=== PATIENT | male | born 1980 | race Two or more races ===

== ENCOUNTER 2018-07-01 01:04 | Observation (INO) ==
[2018-07-01 01:36] LABS: Baso % (Auto) 0.4 % (0.0-2.0); Eos # (Auto) 0.2 th/mm3 (0.0-0.4); Eos % (Auto) 1.7 % (0.0-4.0); Hematocrit 42.2 % (39.0-51.0); Hemoglobin 14.4 gm/dL (13.0-17.0); Lymph # (Auto) 5.1 th/mm3 (1.0-4.8); Lymph % (Auto) 41.6 % (9.0-44.0); Mean Corpuscular Hemoglobin 31.2 pg (27.0-34.0); Mean Corpuscular Volume 91.5 fL (80.0-100.0); Mean Platelet Volume 8.2 fL (7.0-11.0); Mono # (Auto) 0.9 th/mm3 (0.0-0.9); Mono % (Auto) 7.1 % (0.0-8.0); Neut % (Auto) 49.2 % (16.0-70.0); Platelet Count 235 th/mm3 (150-450); Red Blood Count 4.61 mil/mm3 (4.50-5.90); Red Cell Distribution Width 13.1 % (11.6-17.2); White Blood Count 12.2 th/mm3 (4.0-11.0)
--- NOTE | 2018-07-01 01:40 | XR ---
EXAM DATE: 07/01/2018 1:20 AM EDT AGE/SEX: 38 years / Male INDICATIONS: Chest pain. CLINICAL DATA: This is the patient's initial encounter. Patient reports that signs and symptoms have been present for 1 day and indicates a pain score of 6/10. MEDICAL/SURGICAL HISTORY: Hypertension. None. COMPARISON: No prior exams available for comparison. FINDINGS: A single AP view of the chest demonstrates the lungs to be symmetrically aerated without evidence of mass, infiltrate or effusion. The cardiomediastinal contours are unremarkable. Osseous structures a re intact. CONCLUSION: No acute cardiopulmonary process. Electronically signed by: Allan Tan MD 07/01/2018 1:38 AM EDT
[2018-07-01 01:49] LABS: Alanine Aminotransferase 61 U/L (12-78); Albumin 3.6 g/dL (3.4-5.0); Anion Gap 11 meq/L (5-15); Aspartate Aminotransferase 55 U/L (15-37); Blood Urea Nitrogen 16 mg/dL (7-18); Calcium 7.7 mg/dL (8.5-10.1); Carbon Dioxide 25.8 meq/L (21.0-32.0); Chloride 102 meq/L (98-107); Glomerular Filtration Rate 66 mL/min (>89); Glucose,Random 126 mg/dL (74-106); Potassium 3.3 meq/L (3.5-5.1); Sodium 139 meq/L (136-145)
[2018-07-01 01:53] LABS: Alkaline Phosphatase 56 U/L (45-117); Total Protein 7.5 g/dL (6.4-8.2)
--- NOTE | 2018-07-01 01:55 | ED ---
HPI General Chief Complaint: Chest Pain Stated Complaint: Cardiac complaint Time Seen by Provider: 07/01/18 01:20 History of Present Illness HPI narrative: 38-year-old fellow, previously healthy with exception of hypertension, developed chest pain and lightheadedness while he was driving his automobile shortly prior to arrival, when he pulled off to the side of the road , called EMS. On arrival of EMS, patient was found to be diaphoretic and uncomfortable, stood up, and passed out. Unconscious for about 2 minutes, on EMS resuscitation, patient was briefly hypertensive on awakening, 180/110, then rapidly became hypotensive, with blood pressure in the 80/40 area, requiring significant fluid resuscitation with 1-2 liter IVF en route in order to maintain a borderline blood pressure. Patient's blood pressure had stabilized by time of arrival, 130/60, patient was feeling much more comfortable, but still complaining of lower left chest and upper abdominal discomfort. He been in good health, has a past history of HTN, but had not been ill recently, no constitutional symptoms. He is from out of town, here by himself, no prior cardiac history,had no other unusual symptoms while in town. There is a family history of heart disease, no known history of aneurysms. Patient smokes cigarettes daily, alcohol, approximately once or twice per week, but when he does generally drinks about a 12 pack. He has had between 6 and 12 beers over the past 8 hours. Related Data Home Medications Medication Instructions Recorded Confirmed Unable to Obtain Home Meds 07/01/18 07/01/18 Allergies Allergy/AdvReac Type Severity Reaction Status Date / Time No Known Allergies Allergy Unverified 07/01/18 01:12 Review of Systems ROS: all other systems reviewed are negative Constitutional Denies chills, Denies fatigue, Denies fever(s), Denies headache(s) and Denies weakness ENT Denies dizziness and Denies throat swelling Cardiovascular Reports as per HPI, Reports chest pain, Reports diaphoresis, Reports syncope, Reports lightheadedness and Reports dyspnea Respiratory Reports as per HPI, Denies chest congestion, Denies cough, Denies dyspnea and Denies wheezing Gastrointestinal Reports abdominal pain (epigastric, mid abdomen), Denies belching, Denies bloating, Denies hematochezia, Reports nausea and Denies vomiting Genitourinary Reports system reviewed and no additional complaints, except as docu Musculoskeletal Denies back pain Neurologic Reports system reviewed and no additional complaints, except as docu, Reports dizziness, Reports syncope, Denies headache(s), Denies focal weakness, Denies numbness and Denies sensory deficit [facility] Medical History Medical History Hypertension (Acute) Social History Social History Substance History: Active Abuse Smoking Status: Heavy tobacco smoker Tobacco Type: Cigarettes How Often Do You Have a Drink Containing Alcohol: 4 or more times a week Recent Travel in [facility] within the Last 8 Weeks: No Recent Out of Country Travel within the Last 8 Weeks: No Substance Abuse Detail Marijuana: Route Used Substance Abuse: Inhalation Immunization History Tetanus Immunization: >5 Years Hx Influenza Vaccine This Season: No Exam Narrative Exam Narrative: GENERAL: Obese, large framed man, awake and oriented on arrival , vital signs are stable, resting fairly comfortably, speaks easily, no acute respiratory distress, no fever. SKIN: Focused skin assessment warm/dry. HEAD: Atraumatic. Normocephalic. EYES: Pupils equal and round. No scleral icterus. No injection or drainage. ENT: No nasal bleeding or discharge. Mucous membranes pink and moist. NECK: Trachea midline. No JVD. CHEST: Left anterior chest wall muscular tenderness to palpation, little costochondral tenderness, tends to reproduce patient's discomfort. CARDIOVASCULAR: Regular rate and rhythm. No murmur appreciated. RESPIRATORY: No accessory muscle use. Clear to auscultation. Breath sounds equal bilaterally. GASTROINTESTINAL: Abdomen soft, moderate tenderness epigastrium, nondistended, no rebound no guarding. Hepatic and splenic margins not palpable. MUSCULOSKELETAL: No obvious deformities. No clubbing. No cyanosis. No edema. NEUROLOGICAL: Awake and alert. No obvious cranial nerve deficits. Motor grossly within normal limits. Normal speech. PSYCHIATRIC: Appropriate mood and affect; insight and judgment normal. Course Reevaluation(s) Reevaluation #1: Patient has remained stable since initial arrival, still has left anterior chest discomfort, not particular respiratory but he is tender to palpation which is reproducible. Time: 04:04 Initial Documented Vital Signs Temperature 98.7 F 07/01/18 01:13 Pulse Rate 84 07/01/18 01:13 Respiratory Rate 18 07/01/18 01:13 Blood Pressure 136/63 07/01/18 01:13 Pulse Oximetry 97 07/01/18 01:13 Last Documented Vital Signs Temperature 98.7 F 07/01/18 01:13 Pulse Rate 86 07/01/18 03:03 Respiratory Rate 17 07/01/18 03:03 Blood Pressure 114/69 07/01/18 03:03 Pulse Oximetry 100 07/01/18 03:03 Medical Decision Making MDM Narrative Medical decision making narrative: Patient experienced chest pain along with presyncopal symptoms, with full syncope on arrival of EMS, and was hypotensive for an extended period afterwards, requiring IV resuscitation, with initial consideration for either significant myocardial infarction or aortic dissection or aneurysm. Initial troponin was negative, but initial EKG was abnormal, but nonspecific, with no findings of acute ST elevation myocardial infarction or ischemia. CT angiography of the aorta was performed for evaluation of possible aneurysm or dissection, and this was normal as well. Patient has remaining persistent chest pain, at a low level of severity, 3-4 out of 10 by his estimation, but he declined medication for this. Aspirin was administered by EMS prior to arrival, patient has remained stable, but given his lack of history and no onset and persistence of pain, will need admission for observation and rule out of late onset of myocardial findings. Patient is stable at time of disposition and admission to chest pain center. Medical Screen Exam Complete: Yes Emergency Medical Condition: Yes Differential Diagnosis Differential Diagnosis: Myocardial infarction, aortic aneurysm, aortic dissection, acute coronary syndrome, esophageal spasm, gastritis, vasovagal syncope Lab Data Result diagrams: 07/01/18 01:28 07/01/18 01:28 Lab Results 07/01/18 07/01/18 07/01/18 Range/Units 01:28 01:28 01:28 WBC 12.2 H (4.0-11.0) th/mm3 RBC 4.61 (4.50-5.90) mil/mm3 Hgb 14.4 (13.0-17.0) gm/dL Hct 42.2 (39.0-51.0) % MCV 91.5 (80.0-100.0) fL MCH 31.2 (27.0-34.0) pg MCHC 34.0 (32.0-36.0) % RDW 13.1 (11.6-17.2) % Plt Count 235 (150-450) th/mm3 MPV 8.2 (7.0-11.0) fL Neut % (Auto) 49.2 (16.0-70.0) % Lymph % (Auto) 41.6 (9.0-44.0) % Evans % (Auto) 7.1 (0.0-8.0) % Eos % (Auto) 1.7 (0.0-4.0) % Baso % (Auto) 0.4 (0.0-2.0) % Neut # (Auto) 6.0 (1.8-7.7) th/mm3 Lymph # (Auto) 5.1 H (1.0-4.8) th/mm3 Evans # (Auto) 0.9 (0.0-0.9) th/mm3 Eos # (Auto) 0.2 (0.0-0.4) th/mm3 Baso # (Auto) 0.0 (0.0-0.2) th/mm3 WBC Differential . Differential Comment Auto diff final Sodium 139 (136-145) meq/L Potassium 3.3 L (3.5-5.1) meq/L Chloride 102 (98-107) meq/L Carbon Dioxide 25.8 (21.0-32.0) meq/L Anion Gap 11 (5-15) meq/L BUN 16 (7-18) mg/dL Creatinine 1.22 (0.60-1.30) mg/dL Estimated GFR 66 L (>89) mL/min Random Glucose 126 H (74-106) mg/dL Calcium 7.7 L (8.5-10.1) mg/dL Total Bilirubin 0.3 (0.2-1.0) mg/dL AST 55 H (15-37) U/L ALT 61 (12-78) U/L Alkaline Phosphatase 56 (45-117) U/L Troponin I Less than 0.02 L (0.02-0.05) ng/mL Total Protein 7.5 (6.4-8.2) g/dL Albumin 3.6 (3.4-5.0) g/dL Serum Alcohol 120 H (0-5) mg/dL Imaging Data Radiologist's impression: Chest X-Ray 07/01/18 01:20 CONCLUSION: No acute cardiopulmonary process. Thoracic Aorta CT 07/01/18 01:55 CONCLUSION: 1. No aneurysm or dissection is seen. 2. Gallstone. The gallbladder is not distended or thickened. ECG Data Interpretation: EKG taken at 0113 hrs. Baseline rhythm is sinus at 85 bpm. There is nonspecific ST flattening in inferior lead III, with a nonstop significant Q waves, less than 25% of QRS magnitude. There is nonspecific intraventricular conduction delay, with QRS interval of 141 ms. MD interval normal at 166 ms, QT interval normal at 446 ms corrected. QRS axis is normal at [address] segments and T waves are nonspecific and remaining leads, T waves remain upright, there are no significant elevations compatible with STEMI myocardial infarction or acute coronary syndrome or ischemia. No ectopy is noted. No prior tracing available for comparison. Repeat EKG taken at 0 1432 hrs., unchanged, and prior tracing. No evidence of acute STEMI. QRS morphology normal, QRS axis 79 degrees, QRS interval 124 ms. MD interval 195 ms, QT interval normal at [address] segments are normal without elevations or depressions, T waves are upright throughout. This is unchanged from previous tracing. This is an abnormal but nonspecific tracing. Discharge Plan Discharge Disposition Patient Disposition: 30 Still Patient Discharge Condition Condition: Stable Discharge Details Diagnosis: Chest pain, Syncope Physicians Team ED Provider: Mata Clark Primary Care Provider: Primary Care Chekoi,Janna Attending Provider: Yoan Peter ED Status: Admitted Observation Patient
--- NOTE | 2018-07-01 02:59 | CT ---
EXAM DATE: 07/01/2018 2:07 AM EDT AGE/SEX: 38 years / Male INDICATIONS: Chest pain and hypotensive; rule out aortic aneurysm. CLINICAL DATA: This is the patient's initial encounter. Patient reports that signs and symptoms have been present for 1 day and indicates a pain score of 8/10. MEDICAL/SURGICAL HISTORY: Hypertension. None. RADIATION DOSE: 9.88 CTDI (mGy) COMPARISON: No prior exams available for comparison. TECHNIQUE: Volumetric scanning was performed using a multi-row detector CT scanner during bolus infu julio of 98 ml Omnipaque 350 (iohexol) nonionic water-soluble contrast as a single exam dose. The da ta was post processed with a variety of visualization algorithms including full volume maximum intens ity projection, multi-planar sliding thin slab reformation, curved planar reformation, and surface re ndering techniques. Using automated exposure control and adjustment of the mA and/or kV according to patient size, radiation dose was kept as low as reasonably achievable to obtain optimal diagnostic q uality images. DICOM format image data is available electronically for review and comparison. FINDINGS: Lungs: There is linear density at the posterior aspects of both lower lungs likely related to atelec tasis. Mediastinum: No abnormally enlarged lymph nodes by CT criteria. No axillary or hilar abnormalities a re identified. Abdomen: The liver and spleen are free of focal defects. There is a small calcified gallstone presen t. The pancreas demonstrate no abnormality. The adrenal glands are normal. The kidneys demonstrate no evidence of solid renal mass or hydronephrosis. No free fluid or abdominal masses are identified. No para-aortic adenopathy is seen. The appendix is normal. Pelvis: No evidence of free fluid or pelvic mass. No abnormally enlarged inguinal or retroperitoneal lymph nodes are present. The bladder is unremarkable. Thoracic Aorta: The thoracic aortic root is normal with normal branching of the great vessels. Ther e is no evidence of aneurysm or dissection. Abdominal Aorta: The aorta is normal in caliber without aneurysm or dissection. The renal arteries are patent bilaterally. The proximal celiac and superior mesenteric arteries are patent and normal i n diameter. Pelvic Vessels: The internal iliac and external iliac vessels are patent without aneurysm or stenosi s. CONCLUSION: 1. No aneurysm or dissection is seen. 2. Gallstone. The gallbladder is not distended or thickened. Electronically signed by: Allan Tan MD 07/01/2018 2:58 AM EDT
[2018-07-01] MEDS ORDERED: Acetaminophen 500 MG Tablet PO PRN (04:14)
[2018-07-01] MEDS ORDERED: Temazepam 15 MG Capsule PO PRN (04:14)
[2018-07-01] MEDS ORDERED: Sod Chloride 0.9% Inj 1,000 ML IV.CONT SCH (04:15)
[2018-07-01 05:46] LABS: Magnesium 2.1 mg/dL (1.5-2.5)
[2018-07-01 07:35] VITALS: BP 127/62; RESP 16; TEMP 99.5; O2SAT 95
--- NOTE | 2018-07-01 08:18 | P.HPCA ---
History of Present Illness Primary Care Physician: Primary Care Physician in [place], [place] Chief Complaint: Dizziness and syncope History of Present Illness: 38 year old male with history of hypertension presents to [facility] after a witness syncopal event. Onset last evening. While driving became dizzy, felt like he was going to past out. Pulled to side of road to switch driving with friend. Walked from drivers side and lost consciousness in front of car. Friend reported 1-2 minutes of LOC, friend called EMS. Upon awakening he realized he pasted out. Once EMS arrived and assisted him into squad he reported substernal chest soreness with intermittent radiation to left upper quad and midback. Moderate in severity. Currently only experiences substernal chest discomfort with palpation or certain movements such as twisting or raising left arm. No chest discomfort prior to syncope episode. Relates chest discomfort from falling face down, stating "I weight #360 pounds, that a lot of weight to be falling on." Endorses past syncope episodes twice, one at age 15 and once after the sight of blood approx. 7 years ago. No recent illness, fever, or injury, has been in his general state of health. No history of PE or DVT. Past cardiac testing Remote ETT, approximately 3 years ago, reports walking 15 minutes. Social history Known hypertension. No known diabetes or hyperlipidemia. Current 1 pack/day smoker. Alcohol weekly, drinking 12 beers. Occasional marijuana use. . 7 year old son. 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 Endorses sedentary lifestyle. Family history Noncontributory for early onset cardiovascular disease. x2 maternal uncles VT's in mid 60s. - Diagnosis (1) Syncope (2) Chest pain, atypical (3) History of hypertension (4) Tobacco use (5) Alcohol use (6) Hypokalemia Review of Systems All other systems reviewed negative except as stated in HPI PMFSH - History History Provided By: Patient - Medical History Medical History: Medical History (Last Updated 07/01/18 @ 08:59 by LOC Reed) Hypertension No significant past surgical history - Tobacco History Second Hand Smoke Exposure: No Tobacco Use In Past 30 Days: Yes Smoking Status: Current every day smoker Tobacco Type: Cigarettes Packs Per Day: 1 - Alcohol History How Often Do You Have a Drink Containing Alcohol: 2 to 3 times a week - Substance Use History Substance History: No History of Abuse - Substance Use Type Marijuana Route Used: Inhalation - Travel History History of Recent Travel: No Recent Travel in the [place] Within the Last 8 Weeks: No Recent Travel Out of the Country Within the Last 8 Weeks: No - Immunization History Tetanus Immunization: >5 Years Hx Influenza Vaccine This Season: No Medications and Allergies Active Medications: Active Medications Acetaminophen (Tylenol) 500 mg PO Q4H PRN PRN Reason: HEADACHE Hydrocodone Bitart/Acetaminophen (Teaberry 7.5/325) 1 tab PO Q4H PRN PRN Reason: PAIN SCALE 1 TO 7 Famotidine (Pepcid) 20 mg PO BID CYRIL Sodium Chloride (Ns Inj) 1,000 mls @ 100 mls/hr IV.CONT .Q10H CYRIL Last Admin: 07/01/18 05:58 Dose: 100 mls/hr Nitroglycerin (Nitrostat Sl) 0.4 mg SL Q5M PRN PRN Reason: CHEST PAIN Ondansetron HCl (Zofran Inj) 4 mg IV.PUSH Q6H PRN PRN Reason: NAUSEA Sodium Chloride (Ns Flush) 2 ml IV.FLUSH BID CYRIL Sodium Chloride (Ns Flush) 2 ml IV.FLUSH PRN PRN PRN Reason: FLUSH AFTER USING IV ACCESS Temazepam (Restoril) 15 mg PO HS PRN PRN Reason: INSOMNIA Allergies Allergy/AdvReac Type Severity Reaction Status Date / Time No Known Allergies Allergy Unverified 07/01/18 01:12 Home Medications Medication Instructions Recorded Confirmed Type Unable to Obtain Home Meds 07/01/18 07/01/18 History Exam Vital signs: Vital Signs 07/01/18 01:13 07/01/18 02:44 07/01/18 03:03 Temperature 98.7 F Pulse Rate 84 84 86 Respiratory Rate 18 15 17 Blood Pressure 136/63 132/74 114/69 Pulse Oximetry 97 98 100 07/01/18 03:30 07/01/18 05:16 07/01/18 06:10 Temperature Pulse Rate 85 82 Respiratory Rate 15 Blood Pressure 121/70 Pulse Oximetry 99 98 98 07/01/18 07:28 Temperature 99.5 F Pulse Rate 78 Respiratory Rate 16 Blood Pressure 127/62 Pulse Oximetry 95 Intake & Output 06/30/18 07/01/18 07/01/18 18:59 06:59 18:59 Output Total 900 / 900 Balance -900 / -900 Weight 163.29 kg Output: Urine 900 / 900 Other: Date of Last Bowel Movement 06/30/18 Weight On Admission 163.29 kg Narrative: GENERAL: Alert WN, WD, NAD, pleasant, tall, morbidly obese, male HEAD: NC, AT EYES: Sclera clear, conjunctiva without injection ENT: Mucous membranes pink and moist NECK: Supple, no masses, trachea midline CV: RRR, without murmur, rub, gallop, no JVD, S1-S2 no S3-S4. Substernal point tenderness with palpation. RESP: Diminished lungs throughout bilateral, no crackles, wheeze, rhonchi, symmetrical chest rise, nonlabored, able to speak in full sentences ABD: Soft, NT, ND, no masses, positive bowel tones EXT: Pulses +2x4, no dependent edema MS: Normal tone x4 extremities, nontender, no obvious deformities, full range of motion NEURO: CN II through CN XII grossly intact, motor strength 5/5 PSYCH: A+O x3, pleasant affect, appropriate speech, mood, insight and judgment SKIN: Normal turgor, normal texture, no lesions, no rashes, brisk cap refill, even hair distribution, left knee superficial wound Results 07/01/18 01:28 07/01/18 01:28 Cardiac Enzymes 07/01/18 07/01/18 07/01/18 Range/Units 01:28 04:30 04:30 AST 55 H (15-37) U/L Troponin I Less than 0.02 L Less than 0.02 L Cancelled (0.02-0.05) ng/mL CBC 07/01/18 Range/Units 01:28 WBC 12.2 H (4.0-11.0) th/mm3 RBC 4.61 (4.50-5.90) mil/mm3 Hgb 14.4 (13.0-17.0) gm/dL Hct 42.2 (39.0-51.0) % Plt Count 235 (150-450) th/mm3 Neut # (Auto) 6.0 (1.8-7.7) th/mm3 Lymph # (Auto) 5.1 H (1.0-4.8) th/mm3 Gosper # (Auto) 0.9 (0.0-0.9) th/mm3 Eos # (Auto) 0.2 (0.0-0.4) th/mm3 Baso # (Auto) 0.0 (0.0-0.2) th/mm3 Comprehensive Metabolic Panel 07/01/18 Range/Units 01:28 Sodium 139 (136-145) meq/L Potassium 3.3 L (3.5-5.1) meq/L Chloride 102 (98-107) meq/L Carbon Dioxide 25.8 (21.0-32.0) meq/L BUN 16 (7-18) mg/dL Creatinine 1.22 (0.60-1.30) mg/dL Calcium 7.7 L (8.5-10.1) mg/dL AST 55 H (15-37) U/L ALT 61 (12-78) U/L Alkaline Phosphatase 56 (45-117) U/L Total Protein 7.5 (6.4-8.2) g/dL Albumin 3.6 (3.4-5.0) g/dL Intake and Output 06/30/18 07/01/18 07/01/18 22:59 06:59 14:59 Output Total 900 / 900 Balance -900 / -900 Output: Urine 900 / 900 Other: Date of Last Bowel Movement 06/30/18 Weight 163.29 kg Weight On Admission 163.29 kg - Imaging and Cardiology Imaging: Impressions Chest X-Ray 07/01/18 01:20 CONCLUSION: No acute cardiopulmonary process. Thoracic Aorta CT 07/01/18 01:55 CONCLUSION: 1. No aneurysm or dissection is seen. 2. Gallstone. The gallbladder is not distended or thickened. EKG interpretations - EKG EKG results cardiology: sinus rhythm, normal axis, normal QRS Caprini VTE Risk Assessment Caprini VTE Risk Assessment: No/Low Risk (score <= 1) Caprini Risk Assessment Model: Point Value = 1 Point Value = 2 Point Value = 3 Point Value = 5 Age 41-60 Minor surgery BMI > 25 kg/m2 Swollen legs Varicose veins or History of unexplained or recurrent spontaneous Oral contraceptives or hormone replacement Sepsis (< 1 month) Serious lung disease, including pneumonia (< 1 month) Abnormal pulmonary function Acute myocardial infarction Congestive heart failure (< 1 month) History of inflammatory bowel disease Medical patient at bed rest Age 61-74 Arthroscopic surgery Major open surgery (> 45 min) Laparoscopic surgery (> 45 min) Malignancy Confined to bed (> 72 hours) Immobilizing plaster cast Central venous access Age >= 75 History of VTE Family history of VTE Factor V Leiden Prothrombin [id number] Lupus anticoagulant Anticardiolipin antibodies Elevated serum homocysteine Heparin-induced thrombocytopenia Other congenital or acquired thrombophilia Stroke (< 1 month) Elective arthroplasty Hip, pelvis, or leg fracture Acute spinal cord injury (< 1 month) Prophylaxis Regimen: Total Risk Factor Score Risk Level Prophylaxis Regimen 0-1 Low Early ambulation 2 Moderate Order ONE of the following: *Sequential Compression Device (SCD) *Heparin 5000 units SQ BID 3-4 Higher Order ONE of the following medications: *Heparin 5000 units SQ TID *Enoxaparin/Lovenox 40 mg SQ daily (WT < 150 kg, CrCl > 30 mL/min) *Enoxaparin/Lovenox 30 mg SQ daily (WT < 150 kg, CrCl > 10-29 mL/min) *Enoxaparin/Lovenox 30 mg SQ BID (WT < 150 kg, CrCl > 30 mL/min) AND/OR *Sequential Compression Device (SCD) 5 or more Highest Order ONE of the following medications: *Heparin 5000 units SQ TID (Preferred with Epidurals) *Enoxaparin/Lovenox 40 mg SQ daily (WT < 150 kg, CrCl > 30 mL/min) *Enoxaparin/Lovenox 30 mg SQ daily (WT < 150 kg, CrCl > 10-29 mL/min) *Enoxaparin/Lovenox 30 mg SQ BID (WT < 150 kg, CrCl > 30 mL/min) AND *Sequential Compression Device (SCD) Assessment and Plan - Assessment (1) Syncope Code(s): R55 - Syncope and collapse Status: Acute Plan: Orthostatic blood pressure. (2) Chest pain, atypical Code(s): R07.89 - Other chest pain Status: Acute Plan: Admitted to chest pain center. Continue ruling out ACS with 3 sets of EKGs and cardiac enzymes. Will be seen and evaluated by Dr. Peter. Likely no further cardiac testing will be required also patient would like to be discharged to follow up with his PCP. (3) History of hypertension Code(s): Z86.79 - Personal history of other diseases of the circulatory system Status: Chronic Plan: Continue to monitor. Attempt to get name of home blood pressure medication. (4) Tobacco use Code(s): Z72.0 - Tobacco use Status: Acute Plan: Strongly encouraged and stressed the importance of tobacco cessation. Instructed to quit smoking. Discussed Tobacco Free [place] program available to him. (5) Alcohol use Code(s): Z78.9 - Other specified health status Status: Acute Plan: Discussed decreasing alcohol intake of no more than 2 drinks daily. Encouraged to stop binge drinking of 12 beers at a time. (6) Hypokalemia Code(s): E87.6 - Hypokalemia Status: Acute Plan: 20 meq KCL x1 dose now. Reports history of hypokalemia and quit taking his potassium supplements. Instructed to take potassium supplements as previously instructed. H&P: Quality - VTE Deep Vein Thrombosis/Pulmonary Embolism Present on Admission: No (1) Syncope Qualifiers: Syncope type: unspecified Qualified Code(s): R55 - Syncope and collapse
[2018-07-01 08:23] LABS: Creatine Kinase 144 U/L (39-308)
[2018-07-01] MEDS ORDERED: Famotidine 20 MG Tablet PO SCH (09:00)
[2018-07-01 11:11] VITALS: PULSE 75
--- NOTE | 2018-07-01 13:50 | ECG ---
Date Performed: 07/01/2018 Time Performed: 04:32:16 PTAGE: 38 years EKG: Sinus rhythm WITH SINUS ARRHYTHMIA MODERATE INTRAVENTRICULAR CONDUCTION DELAY BORDERLINE ECG NO PREVIOUS TRACING DOCTOR: Yoan Peter Interpretating Date/Time 07/01/2018 13:49:27
--- NOTE | 2018-07-01 13:50 | ECG ---
Date Performed: 07/01/2018 Time Performed: 01:13:48 PTAGE: 38 years EKG: Sinus rhythm INTRAVENTRICULAR CONDUCTION DELAY NO PREVIOUS TRACING DOCTOR: Yoan Peter Interpretating Date/Time 07/01/2018 13:49:59
--- NOTE | 2018-07-01 13:51 | ECG ---
Date Performed: 07/01/2018 Time Performed: 07:32:21 PTAGE: 38 years EKG: Sinus rhythm MODERATE INTRAVENTRICULAR CONDUCTION DELAY BORDERLINE ECG PREVIOUS TRACING : 07/01/2018 01.13 Since previous tracing, no significant change noted DOCTOR: Yoan Peter Interpretating Date/Time 07/01/2018 13:50:19
== END 2018-07-01 12:13 | disposition home or self-care (01) ==
LOC: NEPC 01:04 → NEDA 01:04 → NEPFCDU 05:36
DX: R07.9 Chest pain, unspecified; Z82.49 Family history of ischemic heart disease and other diseases of the circulatory system; I10 Essential (primary) hypertension; R55 Syncope and collapse; R61 Generalized hyperhidrosis; E87.6 Hypokalemia; F12.90 Cannabis use, unspecified, uncomplicated; K80.20 Calculus of gallbladder without cholecystitis without obstruction; Z72.89 Other problems related to lifestyle; E66.9 Obesity, unspecified; I95.9 Hypotension, unspecified; F17.210 Nicotine dependence, cigarettes, uncomplicated